=== PATIENT | male | born 1990 | race Hispanic/Latino ===

== ENCOUNTER 2023-08-11 17:49 | Emergency (ER) | payer MEDICAID, OTHER ==
[~2023-08-11] VITALS: Ht 182.9 cm; Wt 122.5 kg
[2023-08-11] MEDS ORDERED: 0.9%NACL 1000ML 1,000 ML IV ONE ×3 (17:51→18:00)
[2023-08-11] MEDS ORDERED: DILTIAZEM 25MG INJ IVP ONE ×3 (17:51→18:00)
[2023-08-11] MEDS ORDERED: NALOXONE HCL 0.4 MG/1 ML ML ONE (17:52)
[2023-08-11 17:57] LABS: ABG BASE EXCESS -5.4 mmol/L (-2.0-3.0); ABG HCO3 20.4 mmol/L (21.0-28.0); ABG OXYGEN SATURATION 99.8 % (95.0-99.0); ABG PCO2 41 mmHg (35-48); ABG PH 7.314 (7.350-7.450); CARBON MONOXIDE 4.2; HHb 0.2; PO2, ARTERIAL BG 391.4 mmHg (83.0-108.0); VENT MODE, BG 100 NRBM (ROOM AIR)
[2023-08-11] MEDS ORDERED: HYDRALAZINE 20MG/ML VIAL ONE (17:57)
[2023-08-11] MEDS ORDERED: NALOXONE HCL 0.4 MG/1 ML ML IVP SCH ×2 (18:00)
[2023-08-11] MEDS ORDERED: HYDRALAZINE 20MG/ML VIAL IV ONE (18:00)
[2023-08-11 18:04] VITALS: BP 165/99; PULSE 117; RESP 22; O2SAT 100
[2023-08-11 18:10] LABS: BASOPHILS # (AUTO) 0.08 K/uL (0.00-0.20); BASOPHILS % (AUTO) 0.5 % (0.0-5.0); EOSINOPHILS # (AUTO) 0.28 K/uL (0.00-0.70); EOSINOPHILS % (AUTO) 1.9 % (0.0-8.0); HEMATOCRIT 50.3 % (42-54); IMMATURE GRANULOCYTE ABSOLUTE 0.06 K/uL (0-1); MEAN CORPUSCULAR HEMOGLOBIN 30.1 pg (27.0-33.0); MEAN CORPUSCULAR HGB CONC 34.2 g/dL (32.0-36.0); MEAN CORPUSCULAR VOLUME 87.9 fL (79-99); MONOCYTES # (AUTO) 1.3 K/uL (0.1-1.0); MONOCYTES % (AUTO) 8.4 % (3.0-13.0); NEUTROPHILS # (AUTO) 7.3 K/uL (1.8-7.7); NEUTROPHILS % (AUTO) 48.8 % (40.0-77.0); PLATELET COUNT (AUTO) 380 K/uL (130-400); RED BLOOD CELL COUNT(AUTO) 5.72 MIL/uL (4.50-6.20); RED CELL DISTRIBUTION WIDTH 14.2 % (11.0-15.5); WHITE BLOOD COUNT (AUTO) 14.9 K/uL (4.8-10.8)
[2023-08-11 18:31] LABS: POTASSIUM 3.7 mmol/L (3.5-5.1)
== END 2023-08-11 18:38 | disposition left against medical advice (07) ==
LOC: EDH 17:49
DX: T40.601A Poisoning by unspecified narcotics, accidental (unintentional), initial encounter (principal); Y92.89 Other specified places as the place of occurrence of the external cause
CPT/HCPCS: 99284; 96374; 96375; 82947; 82550 ×2; 83874; 84484; 80048; 82803; 85025; 83605 ×2; 36415; 36600; 82435; 84132; 84295; 82948; 85018; J2310; J7030; J0360; J3490